=== PATIENT | male | born 1960 | race Caucasian/White ===

== ENCOUNTER 2021-12-23 14:17 | Emergency (ER) | payer OTHER ==
[2021-12-23 15:02] VITALS: BP 162/68; PULSE 79; TEMP 98.6; BMI 31.5
== END 2021-12-23 15:09 | disposition home or self-care (01) ==
LOC: FER 14:17
PROC: 0HQEXZZ Repair Left Lower Arm Skin, External Approach (ICD-10-PCS; principal; 2021-12-23)
DX: S51.812A Laceration without foreign body of left forearm, initial encounter (principal); W26.8XXA Contact with other sharp object(s), not elsewhere classified, initial encounter
CPT/HCPCS: 99282-25

== ENCOUNTER 2022-01-01 10:10 | Emergency (ER) | payer OTHER ==
[2022-01-01 10:20] VITALS: BP 155/79; PULSE 66; TEMP 98; BMI 33.0
== END 2022-01-01 10:56 | disposition home or self-care (01) ==
LOC: FER 10:10
DX: Z48.02 Encounter for removal of sutures (principal)
CPT/HCPCS: 99281-25